=== PATIENT | male | born 1980 | race Caucasian/White ===

== ENCOUNTER 2020-06-06 07:13 | Emergency (ER) | payer OTHER ==
[2020-06-06] MEDS ORDERED: Lorazepam 2 MG/ML VIAL ONE (07:33)
[2020-06-06] MEDS ORDERED: Insulin Regular 300 UNITS/3 ML VIAL ONE (07:39)
[2020-06-06] MEDS ORDERED: levETIRAcetam in NS 100 ML ONE (07:52)
[2020-06-06 08:00] LABS: Band 3 % (5-11); Eosinophils 5 % (0-10); Hemoglobin 13.9 g/dL (14.0-18.0); Lymphocytes 23 % (21-51); MDiff Complete? YES; Mean Corpuscular HGB CONC 32.6 g/dL (32.0-36.0); Mean Corpuscular Hemoglobin 30.9 pg (27.0-31.0); Mean Platelet Volume 9.9 fL (7.4-10.4); Monocytes 3 % (0-10); Neutrophil 66 % (42-75); Platelet Count 212 thou/uL (130-400); RBC Distribution Width 12.4 % (11.5-14.5); White Blood Cell (WBC) Count 11.2 thou/uL (4.8-10.8)
[2020-06-06 08:01] LABS: ALT (SGPT) 28 U/L (8-55); AST (SGOT) 13 U/L (5-34); Acetaminophen Less than 6.0 mcg/mL (10.0-30.0); Albumin 3.5 g/dL (3.5-5.0); Alcohol Less than 10 mg/dL (Less than 10); Alkaline Phosphatase 122 U/L (40-110); Anion Gap 22 mmol/L (10-20); BUN (Urea Nitrogen) 18 mg/dL (8.9-20.6); Bilirubin, Total 0.6 mg/dL (0.2-1.2); Calc. Creatinine Clearance 0 mL/min (70-130); Carbon Dioxide 16 mmol/L (22-29); Chloride 97 mmol/L (98-107); Globulin 2.8 g/dL (2.4-3.5); Potassium 5.1 mmol/L (3.5-5.1); Protein, Total 6.3 g/dL (6.0-8.3); Salicylate Less than 8.0 mg/dL (15.0-30.0); Sodium 130 mmol/L (136-145)
[2020-06-06 08:02] LABS: Base Excess-Venous -8.4 mmol/L (-2.0 to 3.0); Bicarbonate (HCO3v) 16.9 mmol/L (22.0-28.0); CO2 Tension (PvCO2) 33.5 mmHg (40.0-50.0); Chloride 100 mmol/L (98-107); Potassium 5.4 mmol/L (3.5-5.1); Sodium 130 mmol/L (138-145); T. Carbon Dioxide 17.9 mmol/L (22.0-28.0); vO2 Saturation-calc 99.1 % (60.0-85.0)
[2020-06-06 08:04] LABS: Glucose 799 mg/dL (70-105)
--- NOTE | 2020-06-06 09:51 | CT ---
CT OF THE BRAIN WITHOUT CONTRAST: DATE: 06/06/2020. FINDINGS: A noncontrast CT of the brain was done for evaluation of seizure. Apparently, there is a history of a recent subdural hematoma. The ventricles are normal in size with no shift. There is a remote right parietal subdural hematoma that is 5 mm wide and about 4.6 cm long. It is low density so is obviously not acute. No acute bloo d was seen here or elsewhere. There is no sign of edema, mass, or other acute parenchymal abnormalit y. The skull appears intact. Some minor mucosal thickening was noted in the maxillary sinuses. The sphenoid sinus and mastoid air cells are clear. IMPRESSION: Small right parietal subdural hematoma that is obviously old, consistent with the patient's history. No evidence of acute bleeding, edema, or shift. Preliminary report called to Dr. Manzanares at 0757 on 06/06/2020. CODE CR POS: HOME
--- NOTE | 2020-06-06 09:52 | RAD ---
PORTABLE CHEST: DATE: 06/06/2020. FINDINGS: An AP portable film at 0752 shows a normal-sized heart and clear lungs. No infiltrate, effusion, or vascular congestion was seen. The mediastinum appears normal. IMPRESSION: No acute thoracic finding. POS: HOME
[2020-06-06 10:08] LABS: Lactic Acid 1.8 mmol/L (0.5-2.2)
[2020-06-06 10:11] LABS: Anion Gap 13 mmol/L (10-20); BUN (Urea Nitrogen) 19 mg/dL (8.9-20.6); Calc. Creatinine Clearance 0 mL/min (70-130); Calcium 8.3 mg/dL (7.8-10.44); Carbon Dioxide 20 mmol/L (22-29); Chloride 106 mmol/L (98-107); Potassium 4.2 mmol/L (3.5-5.1); Sodium 135 mmol/L (136-145)
[2020-06-06 10:13] LABS: Bilirubin Negative (Negative); Blood, Urine Trace (Negative); Clarity Clear (Clear); Glucose, Urine (Dipstick) 500 mg/dL (Negative); Ketone, Urine 40 mg/dL (Negative); Leukocyte Negative (Negative); Nitrite Negative (Negative); Protein, Urine (Dipstick) 30 mg/dL (Neg-Trace); Urobilinogen 0.2 mg/dL (Less than 2)
[2020-06-06 10:16] LABS: Bacteria/HPF None Seen HPF (None Seen); RBC/HPF 0-3 HPF (0-3); Squamous Epithelial 0-3 HPF (0-3); WBC/HPF None Seen HPF (0-3)
[2020-06-06 10:18] LABS: Glucose 551 mg/dL (70-105)
[2020-06-06 10:25] LABS: Amphetamine Not Detected (NotDetected); Barbiturates Screen Not Detected (NotDetected); Benzodiazepine Screen Not Detected (NotDetected); Cocaine Metabolite Screen Not Detected (NotDetected); Medtox Control Line Valid? VALID (VALID); Methadone Not Detected (NotDetected); Methamphetamine Not Detected (NotDetected); Opiate Screen Not Detected (NotDetected); Oxycodone Screen Not Detected (NotDetected); Phencyclidine (PCP) Not Detected (NotDetected); THC/Cannabinoid Screen Detected (NotDetected); Tricyclic Screen Not Detected (NotDetected)
[2020-06-06 12:03] LABS: Anion Gap 12 mmol/L (10-20); BUN (Urea Nitrogen) 18 mg/dL (8.9-20.6); Calc. Creatinine Clearance 0 mL/min (70-130); Calcium 8.1 mg/dL (7.8-10.44); Carbon Dioxide 21 mmol/L (22-29); Chloride 107 mmol/L (98-107); Glucose 414 mg/dL (70-105); Potassium 4.6 mmol/L (3.5-5.1); Sodium 135 mmol/L (136-145)
[2020-06-06 14:08] LABS: Anion Gap 11 mmol/L (10-20); BUN (Urea Nitrogen) 17 mg/dL (8.9-20.6); Calc. Creatinine Clearance 0 mL/min (70-130); Calcium 8.1 mg/dL (7.8-10.44); Carbon Dioxide 22 mmol/L (22-29); Chloride 111 mmol/L (98-107); Glucose 314 mg/dL (70-105); Sodium 139 mmol/L (136-145)
[2020-06-06 14:24] LABS: Base Excess-Venous -3.1 mmol/L (-2.0 to 3.0); Bicarbonate (HCO3v) 23.3 mmol/L (22.0-28.0); CO2 Tension (PvCO2) 46.3 mmHg (40.0-50.0); Calcium, Ionized 1.19 mmol/L (1.15-1.33); Chloride 107 mmol/L (98-107); Hemoglobin - Calc 11.7 g/dL (14.0-18.0); Sodium 139 mmol/L (138-145); T. Carbon Dioxide 24.7 mmol/L (22.0-28.0); vO2 Saturation-calc 99.3 % (60.0-85.0)
[2020-06-06] MEDS ORDERED: Lantus 1000 UNITS/10 ML VIAL SC SCH (16:45)
[2020-06-06] MEDS ORDERED: levETIRAcetam 250 MG TAB PO SCH (17:15)
== END 2020-06-06 17:59 | disposition home or self-care (01) ==
LOC: BURERS 07:13
DX: E10.10 Type 1 diabetes mellitus with ketoacidosis without coma (principal); R56.9 Unspecified convulsions; F17.220 Nicotine dependence, chewing tobacco, uncomplicated; Z79.899 Other long term (current) drug therapy
CPT/HCPCS: 36415; 36416; 70450; 71045; 80053; 80306; 80307; 81003; 81015; 82330; 82803; 83605; 83690; 83735; 85025; 96365; 96366; 96367; 96375; J1815; J1953; J2060

== ENCOUNTER 2021-11-30 15:52 | Emergency (ER) | payer OTHER ==
[2021-11-30] MEDS ORDERED: Aspirin Chewable 81 MG TAB ONE (16:09)
[2021-11-30] MEDS ORDERED: Insulin Regular 300 UNITS/3 ML VIAL ONE (16:15)
[2021-11-30 16:24] LABS: #Basophils 0.1 thou/uL (0.0-0.2); #Eosinphils 0.1 thou/uL (0.0-0.7); #Lymphocytes 3.7 thou/uL (1.20-3.40); #Monocytes 0.6 thou/uL (0.11-0.59); #Neutrophils 12.3 thou/uL (1.40-6.50); %Basophils 0.9 % (0.0-1.0); %Eosinophils 0.7 % (0.0-10.0); %Lymphocytes 22.1 % (21.0-51.0); %Monocytes 3.3 % (0.0-10.0); Hemoglobin 15.4 g/dL (14.0-18.0); Mean Corpuscular HGB CONC 32.6 g/dL (32.0-36.0); Mean Corpuscular Hemoglobin 31.5 pg (27.0-31.0); Mean Corpuscular Volume 96.7 fL (78.0-98.0); Mean Platelet Volume 10.2 fL (7.4-10.4); Platelet Count 268 thou/uL (130-400); RBC Distribution Width 11.8 % (11.5-14.5); Red Blood Cell (RBC) Count 4.88 mill/uL (4.70-6.10); White Blood Cell (WBC) Count 16.8 thou/uL (4.8-10.8)
[2021-11-30 16:39] LABS: ALT (SGPT) 27 U/L (8-55); AST (SGOT) 16 U/L (5-34); Albumin 3.9 g/dL (3.5-5.0); Alkaline Phosphatase 111 U/L (40-110); Anion Gap 30 mmol/L (10-20); BUN (Urea Nitrogen) 30 mg/dL (8.9-20.6); Bilirubin, Total 0.7 mg/dL (0.2-1.2); Calc. Creatinine Clearance 0 mL/min (70-130); Calcium 9.9 mg/dL (7.8-10.44); Carbon Dioxide 15 mmol/L (22-29); Chloride 90 mmol/L (98-107); Estimated GFR 48; Globulin 2.7 g/dL (2.4-3.5); Potassium 5.3 mmol/L (3.5-5.1); Protein, Total 6.6 g/dL (6.0-8.3); Sodium 130 mmol/L (136-145)
[2021-11-30 16:41] LABS: Glucose 685 mg/dL (70-105)
[2021-11-30 17:10] LABS: Base Excess-Venous -12.1 mmol/L (-2.0 to 3.0); Bicarbonate (HCO3v) 13.7 mmol/L (22.0-28.0); CO2 Tension (PvCO2) 30.6 mmHg (42.0-51.0); Calcium, Ionized 1.16 mmol/L (1.15-1.33); Chloride 102 mmol/L (98-107); Hemoglobin - Calc 13.5 g/dL (14.0-18.0); Potassium 4.8 mmol/L (3.5-5.1); Sodium 129 mmol/L (138-145); T. Carbon Dioxide 14.7 mmol/L (22.0-28.0); vO2 Saturation-calc 88.4 % (60.0-85.0)
[2021-11-30 17:18] LABS: Bilirubin Small (Negative); Blood, Urine Negative (Negative); Clarity Clear (Clear); Glucose, Urine (Dipstick) 500 mg/dL (Negative); Ketone, Urine > or equal to 80 mg/dL (Negative); Leukocyte Negative (Negative); Nitrite Negative (Negative); Protein, Urine (Dipstick) 100 mg/dL (Neg-Trace); Specific Gravity, Urine 1.015 (1.005-1.030); Urobilinogen 0.2 mg/dL (Less than 2)
[2021-11-30 17:28] LABS: Bacteria/HPF Rare-Few HPF (None Seen); RBC/HPF None Seen HPF (0-3); Squamous Epithelial 0-3 HPF (0-3); WBC/HPF 0-3 HPF (0-3); Yeast-Budding Rare HPF (None Seen)
[2021-11-30 19:54] LABS: Anion Gap 21 mmol/L (10-20); BUN (Urea Nitrogen) 30 mg/dL (8.9-20.6); Calc. Creatinine Clearance 0 mL/min (70-130); Calcium 9.1 mg/dL (7.8-10.44); Carbon Dioxide 20 mmol/L (22-29); Chloride 98 mmol/L (98-107); Estimated GFR 52; Glucose 410 mg/dL (70-105); Potassium 4.3 mmol/L (3.5-5.1); Sodium 135 mmol/L (136-145)
== END 2021-11-30 20:20 | disposition short-term general hospital (02) ==
LOC: BURERS 15:52
DX: E10.10 Type 1 diabetes mellitus with ketoacidosis without coma (principal); R07.89 Other chest pain; R00.0 Tachycardia, unspecified; I10 Essential (primary) hypertension; F17.220 Nicotine dependence, chewing tobacco, uncomplicated; Z79.84 Long term (current) use of oral hypoglycemic drugs; Z79.899 Other long term (current) drug therapy
CPT/HCPCS: 36416; 71045; 80053; 81003; 81015; 82330; 82803; 83735; 83880; 84484; 85025; 93005; 94760; 96361; 96365; 96366; 96376; 36415-59; J1815

== ENCOUNTER 2022-11-23 12:11 | Emergency (ER) | payer OTHER ==
[~2022-11-23 12:11] MED LIST: Iopamidol 370 76% 100 ML VIAL ONE
[2022-11-23 12:42] LABS: #Basophils 0.1 thou/uL (0.0-0.2); #Eosinphils 0.2 thou/uL (0.0-0.7); #Lymphocytes 2.6 thou/uL (1.20-3.40); #Monocytes 0.6 thou/uL (0.11-0.59); #Neutrophils 5.4 thou/uL (1.40-6.50); %Basophils 1.6 % (0.0-1.0); %Eosinophils 1.7 % (0.0-10.0); %Monocytes 6.6 % (0.0-10.0); %Neutrophils 61.1 % (42.0-75.0); Hematocrit 44.3 % (42.0-52.0); Hemoglobin 14.7 g/dL (14.0-18.0); Mean Corpuscular HGB CONC 33.1 g/dL (32.0-36.0); Mean Corpuscular Volume 90.7 fl (78.0-98.0); Mean Platelet Volume 9.5 fL (7.4-10.4); Platelet Count 286 10x3/uL (130-400); RBC Distribution Width 11.2 % (11.5-14.5); Red Blood Cell (RBC) Count 4.88 mill/uL (4.70-6.10); White Blood Cell (WBC) Count 8.9 10x3/uL (4.8-10.8)
[2022-11-23 12:52] LABS: INR-International Normal Ratio 0.8; Prothrombin Time 11.8 sec (12.0-14.7)
[2022-11-23 12:53] LABS: PTT 24.9 sec (22.9-36.1)
[2022-11-23 12:56] LABS: ALT (SGPT) 16 U/L (8-55); AST (SGOT) 11 U/L (5-34); Albumin 3.9 g/dL (3.5-5.0); Alkaline Phosphatase 101 U/L (40-110); Anion Gap 17 mmol/L (10-20); BUN (Urea Nitrogen) 35 mg/dL (8.9-20.6); Bilirubin, Total 0.4 mg/dL (0.2-1.2); CK (CPK) 91 U/L (30-200); Calc. Creatinine Clearance 0 mL/min (70-130); Carbon Dioxide 23 mmol/L (22-29); Chloride 102 mmol/L (98-107); Estimated GFR 51; Globulin 2.8 g/dL (2.4-3.5); Glucose 194 mg/dL (70-105); Potassium 3.8 mmol/L (3.5-5.1); Protein, Total 6.7 g/dL (6.0-8.3); Sodium 138 mmol/L (136-145)
== END 2022-11-23 14:06 | disposition home or self-care (01) ==
LOC: BURERS 12:11
DX: G45.9 Transient cerebral ischemic attack, unspecified (principal); E10.9 Type 1 diabetes mellitus without complications; I10 Essential (primary) hypertension; Z79.84 Long term (current) use of oral hypoglycemic drugs; Z79.899 Other long term (current) drug therapy; Z79.4 Long term (current) use of insulin
CPT/HCPCS: 70496; 70498; 80053; 82550; 84484; 85025; 85610; 85730; 93005; Q9967